=== PATIENT | female | born 1980 | race Caucasian/White ===

== ENCOUNTER 2019-05-02 18:03 | Emergency (ER) | payer MEDICARE ==
[~2019-05-02] VITALS: Ht 152.4 cm; Wt 87.1 kg
[~2019-05-02 18:03] MED LIST: AGM875T PO; ALPR.5T; DOXY100C2 PO; HYDR-3720; METR500T
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
[2019-05-02] MEDS ORDERED: KETOROLAC 30 MG/ML VIAL IM PRN (18:30)
[2019-05-02] MEDS ORDERED: DEXAMETHASONE 10 MG/ML (DECADRON) 1 ML VIAL IM ONE (18:30)
--- NOTE | 2019-05-02 18:55 | Diagnostic Imaging Report ---
PROCEDURE: CT cervical spine without contrast. TECHNIQUE: Multiple contiguous axial images were obtained through the cervical spine without the use of intravenous contrast. Sagittal and coronal reformations were then performed. Auto Exposure Controls were utilized during the CT exam to meet ALARA standards for radiation dose reduction. INDICATION: Left shoulder pain. FINDINGS: There is reversal of cervical lordosis. There is moderate narrowing of the C4-C5 disc space with associated endplate spurring. This indents the ventral aspect of the thecal sac at this level. Otherwise, there is no evidence of fracture or malalignment. There is no evidence of bony stenosis elsewhere in the cervical spine. There is no evidence of paraspinous abnormality. IMPRESSION: There is straightening of normal cervical lordosis which may be secondary to muscle spasm or positioning. Localized C4-C5 degenerative disc disease with endplate spurring. This does indent the ventral aspect of the thecal sac; however, there is no other evidence of acute abnormality. Dictated by: Dictated on workstation # [id number]
[2019-05-02] MEDS ORDERED: oxyCODONE/APAP 5/325MG (PERCOCET 5) TABLET PO ONE (19:30)
[2019-05-02] MEDS ORDERED: PRD20T PO (20:30)
[2019-05-02] MEDS ORDERED: OXYC1TAB16 PO (20:30)
[2019-05-02 20:35] VITALS: BP 117/80
[2019-05-02] MEDS ORDERED: RX-OXYCODONE/APAP 5-325 MG #4 TAB PK PO PRN (20:45)
== END 2019-05-02 20:35 | disposition home or self-care (01) ==
LOC: EDUNIT# 18:03 → ER 18:04
DX: M54.12 Radiculopathy, cervical region (principal); M50.00 Cervical disc disorder with myelopathy, unspecified cervical region; Z88.8 Allergy status to other drugs, medicaments and biological substances
CPT/HCPCS: 72125; 96372

== ENCOUNTER → 2019-05-21 | Outpatient (CLI) | payer MEDICARE ==
[~2019-05-21] MED LIST changes: +OXYC1TAB16 PO; +PRD20T PO
--- NOTE | 2019-05-21 16:20 | Diagnostic Imaging Report ---
PROCEDURE: MR imaging cervical spine without contrast. TECHNIQUE: Multiplanar, multisequence MR imaging of the cervical spine was performed without contrast. INDICATION: Left shoulder pain. COMPARISON: No prior studies are available for comparison. FINDINGS: Curvature and alignment of the cervical spine is normal. Vertebral body marrow signal is normal. No marrow lesion is seen. There is some mild disc desiccation compatible with degenerative change as well as disc space narrowing at C4-C5 level. The cervical cord does show normal homogeneous signal intensity and normal morphology. Craniocervical junction is unremarkable. C2-C3: No central canal or neural foramina stenosis is seen. C3-C4: No central canal or neural foraminal stenosis is identified. C4-C5: Broad-based disc/osteophyte complex does indent the ventral thecal sac. There may be very mild narrowing of the neural foramina. Mild narrowing of the central canal is seen. C5-C6: No central canal or neural foraminal stenosis is identified. C6-C7: No central canal or neural foramina stenosis is identified. C7-T1: No central canal or neural foraminal stenosis is identified. IMPRESSION: Cervical spondylosis, greatest at C4-C5 level where there is mild central canal and bilateral neural foraminal narrowing. Dictated by: Dictated on workstation # [id number]
== END ==
LOC: RAD 15:18
PROVIDERS: ATTEND Anesthesiology
DX: M47.22 Other spondylosis with radiculopathy, cervical region (principal); M48.02 Spinal stenosis, cervical region
CPT/HCPCS: 72141

== ENCOUNTER 2022-03-23 15:55 | Emergency (ER) | payer MEDICARE, MEDICAID ==
[~2022-03-23] VITALS: Ht 152 cm; Wt 86.0 kg
--- NOTE | 2022-03-23 16:57 | Diagnostic Imaging Report ---
INDICATION: Left hip pain, popping sensation. TECHNIQUE: AP pelvis and AP and oblique views of the left hip are obtained. FINDINGS: No fracture or acute bony abnormality is seen. Hip joint spaces appear unremarkable. There is no lytic or blastic lesion. IMPRESSION: Negative pelvis and left hip. Dictated by: Dictated on workstation # [id number]
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
[2022-03-23] MEDS ORDERED: KETOROLAC 30 MG/ML VIAL IM ONE (18:30)
[2022-03-23 18:38] VITALS: BP 152/95
== END 2022-03-23 18:42 | disposition home or self-care (01) ==
LOC: EDUNIT# 15:55 → ER FS 15:56
DX: M25.552 Pain in left hip (principal); F17.210 Nicotine dependence, cigarettes, uncomplicated; Z89.201 Acquired absence of right upper limb, unspecified level; Z98.890 Other specified postprocedural states; Z87.828 Personal history of other (healed) physical injury and trauma; X50.9XXA Other and unspecified overexertion or strenuous movements or postures, initial encounter; Y93.41 Activity, dancing
CPT/HCPCS: 73502